=== PATIENT | female | born 1955 | race Caucasian/White ===

== ENCOUNTER 2020-05-21 00:17 | Emergency (ER) | payer MEDICARE, OTHER ==
[~2020-05-21] VITALS: Ht 177.8 cm; Wt 95.3 kg
[2020-05-21] MEDS ORDERED: LO-DOSE ASPIRIN81 M1 PO (01:07)
[2020-05-21] MEDS ORDERED: PROTONIX20 MG PO (01:08)
[2020-05-21] MEDS ORDERED: HYDROCHLOROTHIA25 MG PO (01:09)
[2020-05-21] MEDS ORDERED: MACROBID 100 M100 MG PO (01:18)
== END 2020-05-21 01:37 | disposition home or self-care (01) ==
LOC: ED 00:17
DX: N30.91 Cystitis, unspecified with hematuria (principal); I48.91 Unspecified atrial fibrillation; K21.9 Gastro-esophageal reflux disease without esophagitis; Z88.8 Allergy status to other drugs, medicaments and biological substances; Z88.5 Allergy status to narcotic agent; Z88.1 Allergy status to other antibiotic agents; Z79.899 Other long term (current) drug therapy; Z79.82 Long term (current) use of aspirin
CPT/HCPCS: 81001; 99283